=== PATIENT | male | born 1985 | race African-American/Black ===

== ENCOUNTER 2017-08-20 04:50 | Emergency (ER) | payer OTHER ==
[2017-08-20 06:27] LABS: KETONE, URINE AUTO RFX NEGATIVE (NEGATIVE); LEUKOCYTE ESTERASE UR AUTO RFX NEGATIVE (NEGATIVE); NITRITE, URINE AUTO RFX NEGATIVE (NEGATIVE); RBC, URINE AUTO RFX 0 /HPF (0-3); SPECIFIC GRAVITY UR AUTO RFX 1.019 (1.002-1.035); SQUAM EPITHELIAL CELL UR AURFX 0 /HPF (0-6); WBC, URINE AUTO RFX 2 /HPF (0-3)
[2017-08-20 08:36] LABS: CHLAMYDIA DNA AMPLIFICATION NEGATIVE (NEGATIVE); GC DNA AMPLIFICATION NEGATIVE (NEGATIVE)
== END 2017-08-20 07:16 | disposition home or self-care (01) ==
LOC: M ED 04:50
DX: R30.0 Dysuria (principal); N41.0 Acute prostatitis
CPT/HCPCS: 81001

== ENCOUNTER 2020-12-31 19:39 | Emergency (ER) | payer OTHER ==
[~2020-12-31] VITALS: Ht 172.7 cm; Wt 90.8 kg
[2020-12-31 19:39] VITALS: BP 143/85
[~2020-12-31 19:39] MED LIST: CIPR-249 PO
--- NOTE | 2020-12-31 22:51 | REPVR ---
PROCEDURE INFORMATION: Exam: XR Left Wrist Exam date and time: 12/31/20 (9:34pm) Age: 35 years old Clinical indication: Injury TECHNIQUE: Imaging protocol: XR Left wrist Views: 4 views COMPARISON: No relevant prior studies available FINDINGS: Bones/joints: Unremarkable. No acute fracture nor dislocation. Soft tissues: Unremarkable. IMPRESSION: No acute findings. Electronically signed by: Krysten Messer On 12/31/2020 22:51:15 PM
[2021-01-01] MEDS ORDERED: NAPROXEN 250 MG TAB PO ONE (02:15)
[2021-01-01] MEDS ORDERED: NAPR-837 PO (02:16)
== END 2021-01-01 02:32 | disposition home or self-care (01) ==
LOC: M ED 19:39
DX: S60.212A Contusion of left wrist, initial encounter (principal); X58.XXXA Exposure to other specified factors, initial encounter; Y92.9 Unspecified place or not applicable; Y93.9 Activity, unspecified; Y99.9 Unspecified external cause status

== ENCOUNTER 2021-08-07 22:35 | Emergency (ER) | payer OTHER ==
[~2021-08-07] VITALS: Ht 170.2 cm; Wt 92.5 kg
[~2021-08-07 22:35] MED LIST changes: +NAPR-837 PO
[2021-08-07 22:36] VITALS: BP 147/84
== END 2021-08-08 02:58 | disposition left against medical advice (07) ==
LOC: M ED 22:35
DX: Z53.21 Procedure and treatment not carried out due to patient leaving prior to being seen by health care provider (principal)

== ENCOUNTER → 2022-01-11 | Outpatient (REF) | LOC: M PLAIMG 14:04 | PROVIDERS: ATTEND Internal Medicine | DX: R06.02 Shortness of breath (principal); R52 Pain, unspecified ==